=== PATIENT | male | born 1995 | race Caucasian/White ===

== ENCOUNTER 2018-10-12 07:02 | Emergency (ER) | payer BC, SELFPAY ==
[2018-10-12] MEDS ORDERED: Mag-Al Plus 1200 MG/1200 MG/120 MG/30 ML UDCUP ONE (07:18)
[2018-10-12] MEDS ORDERED: Lidocaine Viscous Sol 2% 15 ml UD Cup ONE (07:18)
[2018-10-12 08:05] LABS: #Basophils 0.1 thou/uL (0.0-0.2); #Eosinphils 0.3 thou/uL (0.0-0.7); #Lymphocytes 1.5 thou/uL (1.20-3.40); #Monocytes 0.8 thou/uL (0.11-0.59); #Neutrophils 6.3 thou/uL (1.40-6.50); %Eosinophils 3.4 % (0.0-10.0); %Lymphocytes 16.2 % (21.0-51.0); %Monocytes 9.4 % (0.0-10.0); %Neutrophils 70.1 % (42.0-75.0); Hemoglobin 15.7 g/dL (14.0-18.0); Mean Corpuscular HGB CONC 32.5 g/dL (32.0-36.0); Mean Corpuscular Hemoglobin 29.1 pg (27.0-31.0); Mean Corpuscular Volume 89.5 fL (78.0-98.0); Mean Platelet Volume 6.5 fL (7.4-10.4); Platelet Count 199 thou/uL (130-400); RBC Distribution Width 11.8 % (11.5-14.5)
[2018-10-12 08:20] LABS: ALT (SGPT) 17 U/L (8-55); AST (SGOT) 19 U/L (5-34); Albumin 4.4 g/dL (3.5-5.0); Alkaline Phosphatase 83 U/L (40-150); Anion Gap 11 mmol/L (10-20); BUN (Urea Nitrogen) 19 mg/dL (8.9-20.6); Bilirubin, Total 0.5 mg/dL (0.2-1.2); Calc. Creatinine Clearance 0 mL/min (70-130); Calcium 9.3 mg/dL (7.8-10.44); Carbon Dioxide 28 mmol/L (22-29); Chloride 106 mmol/L (98-107); Estimated GFR-MDRD 73; Globulin 2.8 g/dL (2.4-3.5); Glucose 78 mg/dL (70-105); Lipase 13 U/L (8-78); Potassium 4.3 mmol/L (3.5-5.1); Protein, Total 7.2 g/dL (6.0-8.3); Sodium 141 mmol/L (136-145)
== END 2018-10-12 08:44 | disposition home or self-care (01) ==
LOC: MADERS 07:02
DX: K29.00 Acute gastritis without bleeding (principal); F31.9 Bipolar disorder, unspecified; F44.81 Dissociative identity disorder; Z87.891 Personal history of nicotine dependence
CPT/HCPCS: 36415; 80053; 83690; 85025; 99284

== ENCOUNTER 2019-08-07 13:08 | Emergency (ER) | payer BC | END 2019-08-07 13:55 | disposition home or self-care (01) | LOC: MADERS 13:08 | DX: K00.6 Disturbances in tooth eruption (principal); K08.89 Other specified disorders of teeth and supporting structures; F44.81 Dissociative identity disorder; F31.9 Bipolar disorder, unspecified; Z87.891 Personal history of nicotine dependence | CPT/HCPCS: 99282 ==

== ENCOUNTER 2019-08-31 18:07 | Emergency (ER) | payer BC ==
[~2019-08-31 18:07] MED LIST: Sodium Chloride 0.9% 1,000 ML BAG ONE
[2019-08-31] MEDS ORDERED: Ondansetron PF 4 MG/2 ML Vial ONE (19:00)
[2019-08-31] MEDS ORDERED: Sodium Chloride 0.9% 1,000 ML ONE ×2 (19:00→19:44)
[2019-08-31 19:18] LABS: Bilirubin Negative (Negative); Blood, Urine Trace (Negative); Clarity Clear (Clear); Glucose, Urine (Dipstick) Negative (Negative); Leukocyte Trace (Negative); Nitrite Negative (Negative); Protein, Urine (Dipstick) Trace mg/dL (Neg-Trace); Urobilinogen 0.2 mg/dL (Less than 2)
[2019-08-31 19:21] LABS: RBC/HPF 0-3 HPF (0-3)
[2019-08-31 19:22] LABS: Bacteria/HPF Rare-Few HPF (None Seen)
[2019-08-31 19:27] LABS: ALT (SGPT) 19 U/L (8-55); AST (SGOT) 15 U/L (5-34); Albumin 4.1 g/dL (3.5-5.0); Alkaline Phosphatase 63 U/L (40-110); Anion Gap 14 mmol/L (10-20); BUN (Urea Nitrogen) 13 mg/dL (8.9-20.6); Bilirubin, Total 0.4 mg/dL (0.2-1.2); CRP (Inflammatory) 13.19 mg/dL (= or < 0.5); Calc. Creatinine Clearance 0 mL/min (70-130); Calcium 9.1 mg/dL (7.8-10.44); Carbon Dioxide 26 mmol/L (22-29); Chloride 103 mmol/L (98-107); Estimated GFR-MDRD Greater than 90; Globulin 2.8 g/dL (2.4-3.5); Glucose 100 mg/dL (70-105); Lipase 20 U/L (8-78); Magnesium 2.1 mg/dL (1.6-2.6); Protein, Total 6.9 g/dL (6.0-8.3); Sodium 139 mmol/L (136-145)
[2019-08-31 19:30] LABS: Band 2 % (5-11); Eosinophils 1 % (0-10); Hemoglobin 14.4 g/dL (14.0-18.0); Lymphocytes 4 % (21-51); MDiff Complete? YES; Mean Corpuscular HGB CONC 32.6 g/dL (32.0-36.0); Mean Corpuscular Hemoglobin 29.7 pg (27.0-31.0); Mean Corpuscular Volume 91.1 fL (78.0-98.0); Monocytes 5 % (0-10); Neutrophil 77 % (42-75); Platelet Count 190 thou/uL (130-400); Platelet Morphology Comment Appears Adequate; RBC Distribution Width 12.1 % (11.5-14.5); RBC Morphology Normal; Reactive Lymphocytes 11 % (0-10); Red Blood Cell (RBC) Count 4.84 mill/uL (4.70-6.10); White Blood Cell (WBC) Count 11.5 thou/uL (4.8-10.8)
[2019-08-31] MEDS ORDERED: Ciprofloxacin 500 MG TAB ONE (19:44)
[2019-08-31] MEDS ORDERED: Acetaminophen 500 MG TAB ONE (19:44)
== END 2019-08-31 22:08 | disposition home or self-care (01) ==
LOC: MADERS 18:07
DX: N12 Tubulo-interstitial nephritis, not specified as acute or chronic (principal); F31.9 Bipolar disorder, unspecified; Z87.891 Personal history of nicotine dependence
CPT/HCPCS: 36415; 80053; 81003; 81015; 83605; 83690; 83735; 84484; 85025; 86140; 96361; 96374; J2405; J7050

== ENCOUNTER 2019-09-02 19:08 | Emergency (ER) | payer BC, OTHER ==
[2019-09-02] MEDS ORDERED: Sodium Chloride 0.9% 1,000 ML ONE (19:42)
[2019-09-02 20:03] LABS: Band 22 % (5-11); Eosinophils 4 % (0-10); Hemoglobin 13.6 g/dL (14.0-18.0); Lymphocytes 23 % (21-51); MDiff Complete? YES; Mean Corpuscular HGB CONC 32.5 g/dL (32.0-36.0); Mean Corpuscular Hemoglobin 29.7 pg (27.0-31.0); Mean Corpuscular Volume 91.2 fL (78.0-98.0); Mean Platelet Volume 6.6 fL (7.4-10.4); Monocytes 13 % (0-10); Neutrophil 38 % (42-75); Platelet Count 221 thou/uL (130-400); RBC Distribution Width 12.1 % (11.5-14.5); White Blood Cell (WBC) Count 8.3 thou/uL (4.8-10.8)
[2019-09-02 20:06] LABS: ALT (SGPT) 20 U/L (8-55); AST (SGOT) 18 U/L (5-34); Albumin 3.9 g/dL (3.5-5.0); Alkaline Phosphatase 74 U/L (40-110); Anion Gap 13 mmol/L (10-20); BUN (Urea Nitrogen) 6 mg/dL (8.9-20.6); Bilirubin, Total 0.3 mg/dL (0.2-1.2); Calc. Creatinine Clearance 0 mL/min (70-130); Calcium 8.7 mg/dL (7.8-10.44); Carbon Dioxide 28 mmol/L (22-29); Chloride 103 mmol/L (98-107); Estimated GFR-MDRD Greater than 90; Globulin 2.7 g/dL (2.4-3.5); Glucose 103 mg/dL (70-105); Potassium 3.9 mmol/L (3.5-5.1); Protein, Total 6.6 g/dL (6.0-8.3); Sodium 140 mmol/L (136-145)
[2019-09-02 20:56] LABS: Bilirubin Negative (Negative); Blood, Urine Negative (Negative); Clarity Clear (Clear); Glucose, Urine (Dipstick) Negative (Negative); Leukocyte Negative (Negative); Nitrite Negative (Negative); Protein, Urine (Dipstick) Negative (Neg-Trace); Urobilinogen 0.2 mg/dL (Less than 2)
== END 2019-09-02 21:21 | disposition home or self-care (01) ==
LOC: MADERS 19:08
DX: J10.1 Influenza due to other identified influenza virus with other respiratory manifestations (principal); R10.9 Unspecified abdominal pain; R10.817 Generalized abdominal tenderness; M79.10 Myalgia, unspecified site; Z03.818 Encounter for observation for suspected exposure to other biological agents ruled out; M54.5 Low back pain; F20.9 Schizophrenia, unspecified; F60.9 Personality disorder, unspecified; Z79.899 Other long term (current) drug therapy
CPT/HCPCS: 80053; 81003; 83605; 85025; 87040; 87635; 87804; 96360; J7050; U0002

== ENCOUNTER 2020-06-23 17:47 | Emergency (ER) | payer BC ==
[2020-06-23] MEDS ORDERED: Mag-Al Plus 1200 MG/1200 MG/120 MG/30 ML UDCUP ONE (18:30)
--- NOTE | 2020-06-23 19:21 | RAD ---
UPRIGHT VIEW OF THE ABDOMEN: 06/23/20 HISTORY: Abdominal pain. There appears to be some mild fluid filled distention to the stomach. No free air. No obstruction. IMPRESSION: No acute findings. POS: [facility]
== END 2020-06-23 19:36 | disposition home or self-care (01) ==
LOC: MADERS 17:47
DX: K29.70 Gastritis, unspecified, without bleeding (principal)
CPT/HCPCS: 74018

== ENCOUNTER 2021-05-20 15:18 | Emergency (ER) | payer BC ==
[2021-05-21 15:29] LABS: SARS-CoV-2 PCR by NAA Not Detected (NotDetected)
== END 2021-05-20 15:50 | disposition home or self-care (01) ==
LOC: MADERS 15:18
DX: Z20.822 Contact with and (suspected) exposure to COVID-19 (principal); F17.210 Nicotine dependence, cigarettes, uncomplicated
CPT/HCPCS: 99283; U0003; U0005

== ENCOUNTER 2021-11-30 06:57 | Emergency (ER) | payer BC | END 2021-11-30 07:27 | disposition home or self-care (01) | LOC: MADERS 06:57 | DX: K08.89 Other specified disorders of teeth and supporting structures (principal); F17.210 Nicotine dependence, cigarettes, uncomplicated; F17.290 Nicotine dependence, other tobacco product, uncomplicated | CPT/HCPCS: 99282 ==

== ENCOUNTER 2022-01-31 10:33 | Emergency (ER) | payer OTHER, BC ==
[2022-01-31] MEDS ORDERED: Naproxen 500 MG TAB ONE (12:21)
[2022-01-31] MEDS ORDERED: Lidocaine 1% (PF) 30 ML VIAL ONE (12:21)
[2022-01-31] MEDS ORDERED: Bacitracin 1 PK ONE (12:55)
== END 2022-01-31 13:00 | disposition home or self-care (01) ==
LOC: MADERS 10:33
DX: S01.511A Laceration without foreign body of lip, initial encounter (principal); F17.210 Nicotine dependence, cigarettes, uncomplicated; W31.89XA Contact with other specified machinery, initial encounter; Y92.69 Other specified industrial and construction area as the place of occurrence of the external cause
CPT/HCPCS: 12011; 70486; J2001

== ENCOUNTER 2023-11-09 15:31 | Outpatient (CLI) | payer BC | END 2023-11-09 15:32 | disposition home or self-care (01) | LOC: MADLAB 15:31 | PROVIDERS: ATTEND Radiology Diagnostic Radiology | DX: M79.642 Pain in left hand (principal) ==

== ENCOUNTER 2023-11-10 15:03 | Outpatient (CLI) | payer BC | END 2023-11-10 15:04 | disposition home or self-care (01) | LOC: MADLAB 15:03 | PROVIDERS: ATTEND Nurse Practitioner Family | DX: M79.642 Pain in left hand (principal) ==